=== PATIENT | female | born 2000 | race Caucasian/White ===

== ENCOUNTER 2018-07-19 15:36 | Emergency (ER) | payer OTHER ==
[~2018-07-19] VITALS: Ht 167.6 cm; Wt 65.9 kg
--- NOTE | 2018-07-19 15:58 | NUR ---
Patient brought in by law enforcement and [employer] member for reported depression and attempt to harm self. Patient reports she took additional doses of nyquil initially attempting to harm herself but reports she realized she did not want to take her life or make herself ill and called for help. Patient is alert and oriented upon arrival, calm, compliant and intermittently tearful. Patient states a couple of weeks ago her boyfriend broke up with her and then she lost her job and didn't receive the support from her friends that she expected, her family is out of town as she attends college in the area. Patient placed on legal hold by [employer] member, awaiting evaluation by ER provider. Belongings bagged, patient in safe room wearing hospital gown.
--- NOTE | 2018-07-19 16:13 | NUR ---
Dr. Stephens at bedside to evaluate pt.
[2018-07-19] MEDS ORDERED: ONDANSETRON ODT 4 MG ONE (16:33)
--- NOTE | 2018-07-19 16:40 | NUR ---
Pt with N/V. Discussed with Dr. Stephens. Orders received for zofran ODT. Pt medicated per order, denies other needs.
--- NOTE | 2018-07-19 16:40 | NUR ---
Pt's father: Tho Hernandez phone#:[phone]. Pt's mother: Mervat phone#:[phone]
[2018-07-19 16:42] LABS: BASOPHILS # (AUTO) 0.03 x10^3/uL (0-0.3); BASOPHILS % (AUTO) 1 % (0-1); EOSINOPHILS # (AUTO) 0.06 x10^3/uL (0-0.8); EOSINOPHILS % (AUTO) 1 % (1-7); LYMPHOCYTES % (AUTO) 17 % (22-44); MD NO; MEAN CORPUSCULAR HEMOGLOBIN 29.2 pg (27.0-34.8); MEAN CORPUSCULAR VOLUME 85.7 fL (80-100); MEAN PLATELET VOLUME 8.6 fL (7.4-10.4); MONOCYTES # (AUTO) 0.45 x10^3/uL (0-1.4); MONOCYTES % (AUTO) 7 % (2-9); NEUTROPHILS # (AUTO) 5.16 x10^3/uL (1.8-8.0); NEUTROPHILS % (AUTO) 75 % (42-75); PLATELET COUNT 303 x10^3/uL (130-400); RED BLOOD COUNT 4.81 x10^6/uL (3.82-5.3); RED CELL DISTRIBUTION WIDTH 12.8 % (9.6-15.2)
[2018-07-19 16:48] LABS: MICROSCOPIC NOT IND
[2018-07-19 16:50] LABS: ALANINE AMINOTRANSFERASE 15 U/L (12-78); ALBUMIN 4.3 g/dL (3.4-5.0); ANION GAP 7 mmol/L (5-15); CHLORIDE 114 mmol/L (98-107)
[2018-07-19 16:51] LABS: SALICYLATE LEVEL < 1.7 mg/dL (2.8-20.0)
[2018-07-19 16:51] LABS: CULTURE INDICATED? NO
[2018-07-19 16:55] LABS: ACETAMINOPHEN 19 mcg/mL (10-30); ALKALINE PHOSPHATASE 81 U/L (45-117); BILIRUBIN,TOTAL 0.7 mg/dL (0.2-1.0); TOTAL PROTEIN 7.8 g/dL (6.4-8.2)
[2018-07-19] MEDS ORDERED: ONDANSETRON ODT 4 MG PO ONE (17:00)
--- NOTE | 2018-07-19 17:14 | NUR ---
Pt resting in bed with eyes closed, resp even and unlabored, NADN.
[2018-07-19 17:47] LABS: AMPHETAMINE SCREEN, URINE Negative (Negative); BARBITURATE SCREEN, URINE Negative (Negative); BENZODIAZEPINE SCREEN, URINE Negative (Negative); CANNABINOID SCREEN, URINE Negative (Negative); COCAINE SCREEN, URINE Negative (Negative); METHADONE SCREEN, URINE Negative (Negative); OPIATE SCREEN, URINE Negative (Negative)
--- NOTE | 2018-07-19 18:16 | NUR ---
PACKET FAXED TO [facility], [facility], [facility] AND [facility]
--- NOTE | 2018-07-19 18:18 | NUR ---
Pt continues resting in bed with eyes closed, resp even and unlabored, NADN.
--- NOTE | 2018-07-19 19:00 | NUR ---
REPORT RECEIVED FROM KAITLYN LASSITER. PT RESTING QUIETLY, NO DISTESS NOTED. GIVEN DINNER TRAY, CALL LIGHT IN REACH, SITTER OUTSIDE DOOR
--- NOTE | 2018-07-19 20:35 | NUR ---
PT RESTING QUIETLY WITH EYES CLOSED, NO DISTRESS NOTED, CALL LIGHT IN REACH, SITTER OURSIDE DOOR
--- NOTE | 2018-07-19 20:55 | NUR ---
[facility] DECLINED TO TAKE PT, STATED DOESN'T MEET ADMISSION CRITERIA
--- NOTE | 2018-07-20 00:13 | NUR ---
PT RESTING QUIETLY WITH EYES CLOSED, NO DISTRESS NOTED, SITTER OUTSIDE DOOR
--- NOTE | 2018-07-20 00:56 | NUR ---
PT RESTING WITH EYES CLOSED, NO DISTRESS NOTED, SITTER OUTSIDE DOOR
--- NOTE | 2018-07-20 02:19 | NUR ---
SPOKE TO MICHAEL AT [facility]. SHE STATES THEY ARE WORKING ON HER PACKET RIGHT NOW BUT ARE AWAITING A NURSE TO ARRIVE FOR ORDERS. THEY STATE RIGHT NOW THEY HAVE TWO FEMALE BEDS OPEN.
--- NOTE | 2018-07-20 02:38 | NUR ---
PT RESTING QUIETLY WITH EYES CLOSED, NO DISTRESS NOTED, SITER OUTSIDE DOOR
--- NOTE | 2018-07-20 02:59 | NUR ---
RICARDA CALLED FROM [facility], ACCEPTING DR. MOLINA
--- NOTE | 2018-07-20 03:05 | NUR ---
REPORT GIVEN TO DICKSON AT [place], WILL GET CALL TELLING WHEN SHE CAN GO
--- NOTE | 2018-07-20 04:45 | NUR ---
NO CHANGES, PT RESTING QUIETLY WITH EYES CLOSED, NO DISTRESS NOTED, SITTER OUTSIDE DOOR
--- NOTE | 2018-07-20 07:09 | NUR ---
REPORT RECEIVED FROM KHALIDA SAHNI. PATIENT A LEGAL HOLD. ROOM SECURED W/ PSYCH PRECAUTIONS. 1:1 SITTER AT DOORWAY. PATIENT SOUNDLY ASLEEP ON GURNEY W/ SIDERAILS UP. BREAKFAST TRAY ORDERED. ON CLARIFICATION OF DISPO-THROUGHPUT RN REPORTS TRANSFER TO [facility] TO BE SCHEDULED SHORTLY.
[2018-07-20 07:20] VITALS: BP 97/62
--- NOTE | 2018-07-20 07:34 | NUR ---
[facility] NOTIFIED OF APPROX 814 ETA
--- NOTE | 2018-07-20 07:48 | NUR ---
PATIENT GIVEN 25MG OF BENADRYL PO FOR SINUS/EAR PRESSURE. REPORTS SHE WAS DIAGNOSED W/ VIALR SINUS INFECTION RECENTLY
[2018-07-20] MEDS ORDERED: DIPHENHYDRAMINE 25 MG CAPSULE ONE (07:50)
[2018-07-20] MEDS ORDERED: DIPHENHYDRAMINE 25 MG CAPSULE PO ONE (08:00)
== END 2018-07-20 08:29 ==
LOC: ED 15:49
DX: F33.2 Major depressive disorder, recurrent severe without psychotic features (principal)
CPT/HCPCS: 36415; 80053; 80307; 80329; 81003; 84703; 85025; 93005; 99285; Q0162; Q0163; G0480